=== PATIENT | male | born 1945 | race Caucasian/White ===

== ENCOUNTER 2017-06-03 10:27 | Day surgery (SDC) | payer MEDICARE ==
[~2017-06-03] VITALS: Ht 170.2 cm; Wt 95.3 kg
[~2017-06-03 10:27] MED LIST: AMLO10TA2 PO; ATOR10TA60 PO; CLON1TAB PO; FENO200C PO; HEPARIN SODIUM 5,000 UNIT in IV NORMAL SALINE 500ML BAG 500 ML IRR ONE; HYDROmorphone 2 MG/ML VIAL IV PRN; IV NORMAL SALINE 1000ML BAG 1,000 ML IV SCH; LIDOCAINE 1% 1 ML SYRINGE. ID PRN; LIDOCAINE 1% 20 ML VIAL. ONE; LISI1TAB5 PO; MORPHINE SULFATE 2 MG/ML DISP.SYRIN. IV PRN; ONDANSETRON PF 4 MG/2 ML VIAL. IV PRN; PAPAVERINE 60 MG/2 ML VIAL FOR OR ONLY. ONE; PROCHLORPERAZINE 10 MG/2 ML VIAL. IV PRN; SURGICEL FIBRILLAR 1X2 EACH. ONE; TAMS0.4C2 PO; [UNRECOGNIZED DRUG - CODE] PO; fentaNYL PF VIAL 100 MCG/2 ML VIAL IV PRN
[2017-06-03] MEDS ORDERED: IV NORMAL SALINE 1000ML BAG 1,000 ML IV ONE (11:15)
[2017-06-03] MEDS ORDERED: ONDANSETRON PF 4 MG/2 ML VIAL. ONE (11:31)
[2017-06-03] MEDS ORDERED: fentaNYL PF VIAL 100 MCG/2 ML VIAL ONE (11:31)
[2017-06-03] MEDS ORDERED: DESFLURANE 31 TO 60 MINUTES IH ONE (11:31)
[2017-06-03] MEDS ORDERED: LIDOCAINE 2% PF Vial for OR 5 ML VIAL. ONE (11:31)
[2017-06-03] MEDS ORDERED: PROPOFOL 20 ML IV ONE (11:31)
[2017-06-03] MEDS ORDERED: DEXAMETHASONE SOD PHOS 20 MG/5 ML VIAL. ONE (11:31)
[2017-06-03] MEDS ORDERED: NEOSTIGMINE METHYLSULFATE 5 MG/5 ML SYRINGE. ONE (11:50)
[2017-06-03] MEDS ORDERED: GLYCOPYRROLATE 1 MG/5 ML VIAL. ONE ×2 (11:50→11:59)
[2017-06-03] MEDS ORDERED: ePHEDrine PF IN SALINE 50 MG/5 ML DISP.SYRIN IV ONE (12:16)
--- NOTE | 2017-06-03 13:28 | PDOC4 ---
Operative Note Operative Note June 03, 2017 Attending surgeon: Sean Chin DO, ANEL, ADAMARIS Preoperative diagnosis: Chronic kidney disease stage V Postoperative diagnosis: Same Procedure: Creation of a right upper extremity brachial cephalic AV fistula Anesthesia: Local with Mac Specimens: None Complications: None Estimated blood loss: 10 mL next Preoperative indications: This is a very pleasant 71-year-old male who has the impending need for hemodialysis. The patient is currently not on hemodialysis but it was requested that we establish AV access for his impending need. Patient was consented for the procedure and he and his both understood all risks, benefits, and alternatives of the procedure prior to proceeding with surgery. Operative procedure: Patient was brought to the operative suite placed supine position. Patient was induced under anesthesia and then his right upper extremity was prepped and draped in sterile fashion. Following this a timeout procedure was performed. It was confirmed that the correct operative site was marked and draped in the patient had received appropriate perioperative antibiotics. This point in time a sterile ultrasound was used to albertina the location of the cephalic vein at the antecubital fossa. Following this a transverse incision above the antecubital fossa was made and carried through the skin and subcutaneous tissue after infiltrating 1% lidocaine. Next I carefully identified the cephalic vein and circumferentially dissected this proximally and distally. The vein was of a good size and healthy and suitable for fistula creation. Following this the brachial artery was dissected circumferentially and controlled with vessel loops. Next the patient was given weight-based heparin and this was let circulate for 3 minutes. Following this the brachial artery was controlled proximally and distally and then an 11 blade scalpel was used to create an arteriotomy. The arteriotomy was extended using Fermin scissors. Following this a 7-0 Prolene suture was used as a stay suture within the brachial artery. Next the distal portion of the cephalic vein was ligated using a 2-0 silk ligature and then divided sharply. The proximal end of the vein was controlled using a bulldog clamp. Following this the end of the vein was prepared and flushed using heparinized saline solution was confirmed excellent outflow through the cephalic vein. Next an end to side anastomosis was sewn in place using 7-0 Prolene suture in a running fashion. Prior to completing the anastomosis I did backbleed and flush the vessels appropriately, and then the anastomosis was completed and flow was restored. Patient had excellent thrill throughout the cephalic vein outflow tract and excellent hemostasis at the level of the anastomosis. I did free up a portion of the subcutaneous tissue and the outflow tract to accommodate expansion of the vein and ensure no kinking of the vein. After confirming adequate hemostasis, and correct needle and instrument count, the skin was closed using interrupted 3-0 Vicryl suture in a deep dermal fashion. Dermabond was next applied to the skin incision. The patient had an excellent palpable radial pulse at the conclusion of the procedure and the patient was taken to the postanesthesia care unit in stable condition. Sean Chin DO, FACS, RPVI [place] Room Operator of Vascular Surgery [facility] SEAN CHIN Jun 03, 2017 13:28
[2017-06-03 13:55] VITALS: BP 130/66
[2017-06-03] MEDS ORDERED: HYDROcodone/APAP 7.5/325MG 1 TAB TABLET PO ONE (14:00)
== END 2017-06-03 14:25 | disposition home or self-care (01) ==
LOC: SURG 10:27
PROVIDERS: ATTEND Surgery
DX: I12.0 Hypertensive chronic kidney disease with stage 5 chronic kidney disease or end stage renal disease (principal); N18.5 Chronic kidney disease, stage 5; Z99.2 Dependence on renal dialysis; E78.00 Pure hypercholesterolemia, unspecified; M19.90 Unspecified osteoarthritis, unspecified site; Z72.0 Tobacco use
CPT/HCPCS: 36821; J1100; J1644; J2405; J2440; J2704; J2710; J3010; J3490; J7040; J7120; J2001

== ENCOUNTER → 2017-08-28 | Outpatient (CLI) | payer MEDICARE ==
[~2017-08-28] MED LIST changes: -HEPARIN SODIUM 5,000 UNIT in IV NORMAL SALINE 500ML BAG 500 ML IRR ONE; -HYDROmorphone 2 MG/ML VIAL IV PRN; -IV NORMAL SALINE 1000ML BAG 1,000 ML IV SCH; -LIDOCAINE 1% 1 ML SYRINGE. ID PRN; -LIDOCAINE 1% 20 ML VIAL. ONE; -MORPHINE SULFATE 2 MG/ML DISP.SYRIN. IV PRN; -ONDANSETRON PF 4 MG/2 ML VIAL. IV PRN; -PAPAVERINE 60 MG/2 ML VIAL FOR OR ONLY. ONE; -PROCHLORPERAZINE 10 MG/2 ML VIAL. IV PRN; -SURGICEL FIBRILLAR 1X2 EACH. ONE; -fentaNYL PF VIAL 100 MCG/2 ML VIAL IV PRN
--- NOTE | 2017-08-28 13:16 | KCIC ---
CHEST PA LATERAL History: Chronic kidney disease, evaluation for TB prior to dialysis, smoker Comparison: None. Findings: Pericardial cardiac silhouette is somewhat enlarged. There are very small dependent pleural effusions bilaterally as seen on the lateral view. There is likely emphysema. Central pulmonary vasculature is prominent. There is a mass is chronic calcification near aortic arch. There is no lobar consolidation. There is deformity of left third, fifth, sixth, seventh, eighth ribs compatible with old trauma. Impression: 1. There are very small dependent pleural effusions. Heart is enlarged. Constellation of findings could be due to component of left ventricular failure. There is emphysema. 2. There are multiple left rib fractures. 3. There are no radiographic findings suggestive of active tuberculosis Electronically signed by: Jd Burgess MD (08/28/2017 1:13 PM) [id number]
== END | disposition home or self-care (01) ==
LOC: KCIC 11:05
PROVIDERS: ATTEND Family Medicine
DX: S22.42XA Multiple fractures of ribs, left side, initial encounter for closed fracture (principal); N18.6 End stage renal disease; J43.9 Emphysema, unspecified; J90 Pleural effusion, not elsewhere classified; Z99.2 Dependence on renal dialysis; X58.XXXA Exposure to other specified factors, initial encounter; Y93.89 Activity, other specified; Y92.89 Other specified places as the place of occurrence of the external cause; Y99.8 Other external cause status
CPT/HCPCS: 71020

== ENCOUNTER 2017-09-03 17:35 | Inpatient (IN) | payer MEDICARE ==
[~2017-09-03] VITALS: Ht 172.7 cm; Wt 96.7 kg
--- NOTE | 2017-09-03 17:38 | PHYS DOC ---
Adult General Chief Complaint Chief Complaint: SHORTNESS OF BREATH HPI HPI Patient is a 71 year old male presenting to the emergency department for evaluation of shortness of breath and lower extremity swelling. Patient says that the shortness of breath has been going on for the last several days but has become significantly worse to the point that he cannot lay flat and he is sleeping sitting up and he can barely walk any distance with becoming short of breath. Patient says his lower extremities are getting quite edematous as well. Patient has underlying kidney disease that his marine biologist presumes is from hypertension and he has a right arm fistula and was to begin dialysis yesterday but did not start as he had not had a chest x-ray to rule out tuberculosis. His marine biologist is Dr. Turner. His room air auction saturation ranges from 89-93%. Review of Systems Review of Systems Constitutional: Denies fever or chills [] Eyes: Denies change in visual acuity, redness, or eye pain [] HENT: Denies nasal congestion or sore throat [] Respiratory: + cough, shortness of breath [] Cardiovascular: No additional information not addressed in HPI [] GI: Denies abdominal pain, nausea, vomiting, bloody stools or diarrhea [] : Denies dysuria or hematuria [] Musculoskeletal: Denies back pain or joint pain [] Integument: Denies rash or skin lesions [] Neurologic: Denies headache, focal weakness or sensory changes [] Current Medications Current Medications Current Medications Medications (Trade) Dose Ordered Sig/Georges Start Time Stop Time Status Last Admin Dose Admin Albuterol/ Ipratropium (Duoneb) 3 ml 1X ONCE 09/03/17 18:00 09/03/17 18:01 DC 09/03/17 18:12 3 ML Ondansetron HCl (Zofran) 4 mg PRN Q8HRS PRN 09/03/17 19:00 09/04/17 18:59 Allergies Allergies Allergies Coded Allergies Type Severity Reaction Last Updated Verified No Known Drug Allergies 06/03/17 No Physical Exam Physical Exam Constitutional: Well developed, well nourished, no acute distress, non-toxic appearance. [] HENT: Normocephalic, atraumatic, bilateral external ears normal, oropharynx moist, no oral exudates, nose normal. [] Eyes: PERRLA, EOMI, conjunctiva normal, no discharge. [] Neck: Normal range of motion, no tenderness, supple, no stridor. [] Cardiovascular:Heart rate regular rhythm, no murmur [] Lungs & Thorax: Bilateral breath sounds with crackles at bases and expiratory wheezing noted as well. Abdomen: Bowel sounds normal, soft, no tenderness, no masses, no pulsatile masses. [] Skin: Warm, dry, no erythema, no rash. [] Back: No tenderness, no CVA tenderness. [] Extremities: No tenderness, no cyanosis, no clubbing, ROM intact, 3-4+ edema BL. [] Neurologic: Alert and oriented X 3, normal motor function, normal sensory function, no focal deficits noted. [] Current Patient Data Vital Signs Vital Signs Date Time Temp Pulse Resp B/P (MAP) Pulse Ox O2 Delivery O2 Flow Rate FiO2 09/03/17 18:14 92 Room Air 09/03/17 17:37 97.7 73 22 154/70 (98) 97.7 Lab Values Laboratory Tests Test 09/03/17 17:55 White Blood Count 9.9 x10^3/uL (4.0-11.0) Red Blood Count 3.15 x10^6/uL (4.30-5.70) L Hemoglobin 9.9 g/dL (13.0-17.5) L Hematocrit 30.1 % (39.0-53.0) L Mean Corpuscular Volume 96 fL (79-100) Mean Corpuscular Hemoglobin 32 pg (25-35) Mean Corpuscular Hemoglobin Concent 33 g/dL (31-37) Red Cell Distribution Width 15.8 % (11.5-14.5) H Platelet Count 270 x10^3/uL (140-400) Neutrophils (%) (Auto) 72 % (31-73) Lymphocytes (%) (Auto) 13 % (24-48) L Monocytes (%) (Auto) 12 % (0-9) H Eosinophils (%) (Auto) 3 % (0-3) Basophils (%) (Auto) 1 % (0-3) Neutrophils # (Auto) 7.1 x10^3uL (1.8-7.7) Lymphocytes # (Auto) 1.3 x10^3/uL (1.0-4.8) Monocytes # (Auto) 1.2 x10^3/uL (0.0-1.1) H Eosinophils # (Auto) 0.3 x10^3/uL (0.0-0.7) Basophils # (Auto) 0.1 x10^3/uL (0.0-0.2) Sodium Level 143 mmol/L (136-145) Potassium Level 3.8 mmol/L (3.5-5.1) Chloride Level 107 mmol/L (98-107) Carbon Dioxide Level 25 mmol/L (21-32) Anion Gap 11 (6-14) Blood Urea Nitrogen 39 mg/dL (8-26) H Creatinine 3.9 mg/dL (0.7-1.3) H Estimated GFR (Cockcroft-Gault) 15.4 BUN/Creatinine Ratio 10 (6-20) Glucose Level 105 mg/dL (70-99) H Calcium Level 9.1 mg/dL (8.5-10.1) Magnesium Level 2.1 mg/dL (1.8-2.4) Total Bilirubin 1.3 mg/dL (0.2-1.0) H Aspartate Amino Transferase (AST) 16 U/L (15-37) Alanine Aminotransferase (ALT) 16 U/L (16-63) Alkaline Phosphatase 42 U/L (46-116) L AV-Jeu-M-Type Natriuretic Peptide 83079 pg/mL (0-124) H Total Protein 7.2 g/dL (6.4-8.2) Albumin 3.0 g/dL (3.4-5.0) L Albumin/Globulin Ratio 0.7 (1.0-1.7) L Thyroid Stimulating Hormone (TSH) 0.946 uIU/mL (0.358-3.74) Laboratory Tests 09/03/17 17:55 Laboratory Tests 09/03/17 17:55 EKG EKG Sinus rhythm at 72 beats per minutes with normal axis no obvious ST elevation or depression and normal T waves. Radiology/Procedures Radiology/Procedures Chest x-ray shows rotation with normal mediastinum with cardiomegaly noted and interstitial edema but no obvious infiltrate. Course & Med Decision Making Course & Med Decision Making Patient with renal failure and is now quite swollen with fluid overloaded now affecting his breathing ability so he will need to be admitted to get dialysis. I spoke to Dr. Galloway of nephrology and he said that he would try dialyze patient tonight so that the nephrology team would not have to dialyze him on Thanksgiving that he was not definitive on that. Patient does not need emergent dialysis in my opinion. Patient will be admitted in stable condition to [facility] for further evaluation and treatment. Dragon Disclaimer Dragon Disclaimer This electronic medical record was generated, in whole or in part, using a voice recognition dictation system. Departure Departure Impression: Primary Impression: Pulmonary edema Additional Impressions: Renal failure Lower extremity edema Elevated brain natriuretic peptide (BNP) level Disposition: ADMITTED INPATIENT Admitting Physician: Other ([facility]) Condition: IMPROVED Referrals: ADARSH MELARA (PCP) Problem Qualifiers Primary Impression: Pulmonary edema Chronicity: acute Qualified Codes: J81.0 - Acute pulmonary edema ADARSH ESCOBEDO DO Sep 03, 2017 17:38
[2017-09-03] MEDS ORDERED: IPRATRPIUM/ALBUTEROL 0.5/2.5MG 3 ML NEBU. NEB ONE (18:00)
[2017-09-03 18:07] LABS: BASO # 0.1 x10^3/uL (0.0-0.2); BASO % 1 % (0-3); EOS % 3 % (0-3); HEMATOCRIT 30.1 % (39.0-53.0); HEMOGLOBIN 9.9 g/dL (13.0-17.5); LYMPH # 1.3 x10^3/uL (1.0-4.8); LYMPH % 13 % (24-48); MEAN CORPUSCULAR HEMOGLOBIN 32 pg (25-35); MEAN CORPUSCULAR HGB CONC 33 g/dL (31-37); MEAN CORPUSCULAR VOLUME 96 fL (79-100); MONO % 12 % (0-9); NEUT % 72 % (31-73); PLATELET COUNT 270 x10^3/uL (140-400); RED BLOOD COUNT 3.15 x10^6/uL (4.30-5.70); RED CELL DISTRIBUTION WIDTH 15.8 % (11.5-14.5); WHITE BLOOD COUNT 9.9 x10^3/uL (4.0-11.0)
--- NOTE | 2017-09-03 18:14 | EKG ---
[facility] [address] [place] [address] Test Date: 2017-09-03 Test Time: 17:43:22 Pat Name: CARMINA LEMA Department: Room: Gender: M Parcel Carrier: : 1945 Requested By: ADARSH ESCOBEDO Order Number: [id number] Reading MD: Idris Freedman Measurements Intervals [place] Rate: 72 P: 51 TX: 124 QRS: 22 QRSD: 96 T: 35 QT: 408 QTc: 448 Interpretive Statements SINUS RHYTHM LEFT ATRIAL ABNORMALITY Electronically Signed On 09-15-2017 14:04:10 GREEN LUMBER GRADER by Idris Freedman
[2017-09-03 18:19] LABS: CALCIUM 9.1 mg/dL (8.5-10.1); CREATININE 3.9 mg/dL (0.7-1.3); GFR 15.4; POTASSIUM 3.8 mmol/L (3.5-5.1)
[2017-09-03 18:25] LABS: ALBUMIN/GLOBULIN RATIO 0.7 (1.0-1.7); MAGNESIUM 2.1 mg/dL (1.8-2.4); TOTAL BILIRUBIN 1.3 mg/dL (0.2-1.0); TOTAL PROTEIN 7.2 g/dL (6.4-8.2)
[2017-09-03] MEDS ORDERED: ONDANSETRON PF 4 MG/2 ML VIAL. IV PRN (19:00)
[2017-09-03] MEDS ORDERED: DIALYSIS PATIENT. MC PRN ×2 (21:45)
[2017-09-03 22:24] VITALS: BP 165/68
[2017-09-03 23:00] VITALS: BP 141/61
[2017-09-04 03:00] VITALS: BP 157/57
[2017-09-04 03:55] LABS: BASO % 1 % (0-3); EOS % 3 % (0-3); HEMATOCRIT 27.5 % (39.0-53.0); HEMOGLOBIN 8.9 g/dL (13.0-17.5); LYMPH # 1.2 x10^3/uL (1.0-4.8); LYMPH % 14 % (24-48); MEAN CORPUSCULAR HEMOGLOBIN 31 pg (25-35); MEAN CORPUSCULAR HGB CONC 33 g/dL (31-37); MEAN CORPUSCULAR VOLUME 95 fL (79-100); MONO % 14 % (0-9); NEUT % 69 % (31-73); PLATELET COUNT 228 x10^3/uL (140-400); RED BLOOD COUNT 2.91 x10^6/uL (4.30-5.70); RED CELL DISTRIBUTION WIDTH 15.7 % (11.5-14.5); WHITE BLOOD COUNT 8.3 x10^3/uL (4.0-11.0)
[2017-09-04 05:00] LABS: CALCIUM 8.4 mg/dL (8.5-10.1); GFR 20.8; POTASSIUM 3.5 mmol/L (3.5-5.1)
[2017-09-04 07:00] VITALS: BP 121/64
--- NOTE | 2017-09-04 08:13 | RAD ---
Single view chest History:Shortness of air An AP view of the chest is submitted. Comparison: 08/28/2017. Findings: There is no pneumothorax. Somewhat enlarged pericardial cardiac silhouette is stable. There is again mild blunting of the costophrenic sulci greater on the right as seen previously. There is some mild interstitial opacity, questionably somewhat increased at the lung bases. There are again multiple old left rib fractures. Impression: 1. There are very small pleural effusions as seen on recent exam and some questionable mild increased interstitial opacity could be due to interstitial edema, constellation of of findings which could be due to sequela of left ventricular failure.
[2017-09-04] MEDS ORDERED: cloNIDine HCL 0.1 MG TABLET PO PRN (09:30)
[2017-09-04] MEDS ORDERED: ACETAMINOPHEN 500 MG TABLET PO PRN (09:30)
[2017-09-04] MEDS ORDERED: ONDANSETRON PF 4 MG/2 ML VIAL. IV PRN (09:30)
--- NOTE | 2017-09-04 10:03 | PDOC1 ---
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 Underwent stat HD last night, feels better now this AM as I see him, fells like he is slowly getting fluid overloaded again, Watching tv, no CP, K ok this AM, bicarb ok. Still makes urine, HOme meds resumed, HTN etc, On HD bec of HTN Past Medical History Cardiovascular: HTN Renal/: Chronic renal insuff Past Surgical History Past Surgical History: Other (AV fistula), No pertinent history Family History Family History: No Significant Social History Smoke: No ALCOHOL: none Drugs: None Current Problem List Problem List Problems Medical Problems: (1) Elevated brain natriuretic peptide (BNP) level Status: Acute (2) Lower extremity edema Status: Acute (3) Pulmonary edema Status: Acute (4) Renal failure Status: Acute Problems: Current Medications Current Medications Current Medications Albuterol/ Ipratropium (Duoneb) 3 ml 1X ONCE NEB Last administered on t 18:12; Start 09/03/17 at 18:00; Stop 09/03/17 at 18:01; Status DC Ondansetron HCl (Zofran) 4 mg PRN Q8HRS PRN IV NAUSEA/VOMITING; Start at 19:00; Stop 09/04/17 at 09:26; Status DC Info (PHARMACY MONITORING -- do not chart) 1 each PRN DAILY PRN MC SEE COMMENTS ; Start 09/03/17 at 21:45 Info (PHARMACY MONITORING -- do not chart) 1 each PRN DAILY PRN MC SEE COMMENTS ; Start 09/03/17 at 21:45; Status UNV Ondansetron HCl (Zofran) 4 mg PRN Q6HRS PRN IV NAUSEA/VOMITING; Start at 09:30 Acetaminophen (Tylenol) 500 mg PRN Q6HRS PRN PO MILD PAIN / TEMP; Start at 09:30 Amlodipine Besylate (Norvasc) 10 mg DAILY PO ; Start 09/04/17 at 10:00 Atorvastatin Calcium (Lipitor) 10 mg QHS PO ; Start 09/04/17 at 21:00 Clonazepam (KlonoPIN) 1 mg BID PO ; Start 09/04/17 at 10:00 Tamsulosin HCl (Flomax) 0.4 mg DAILY PO ; Start 09/04/17 at 10:00 Atenolol (Tenormin) 50 mg DAILY PO ; Start 09/04/17 at 10:00 Fenofibrate (Lofibra) 134 mg DAILY PO ; Start 09/04/17 at 10:00 Non-Formulary Medication 1 tab DAILY PO ; Start 09/05/17 at 09:00; Status UNV Clonidine HCl (Catapres) 0.1 mg PRN Q1HR PRN PO HYPERTENSION, SEE COMMENTS; Start 09/04/17 at 09:30 Lisinopril (Prinivil) 20 mg DAILY PO ; Start 09/04/17 at 10:00 Hydrochlorothiazide (Microzide) 12.5 mg DAILY PO ; Start 09/04/17 at 10:00 Active Scripts Active Reported Klonopin (Clonazepam) 1 Mg Tablet 1 Tab PO BID Lisinopril-Hctz 20-12.5 Mg Tab (Lisinopril/Hydrochlorothiazide) 1 Each Tablet 1 Tab PO DAILY Fenofibrate (Fenofibrate,Micronized) 200 Mg Capsule 1 Cap PO DAILY Tamsulosin Hcl 0.4 Mg Cap.er.24h 1 Cap PO DAILY Betaxolol Hcl 20 Mg Tablet 20 Mg PO DAILY Amlodipine Besylate 10 Mg Tablet 10 Mg PO DAILY Atorvastatin Calcium 10 Mg Tablet 1 Tab PO DAILY Allergies Allergies: Coded Allergies: No Known Drug Allergies (Unverified , 06/03/17) ROS General: No: Chills, Night Sweats, Fatigue, Malaise, Appetite, Other PSYCHOLOGICAL ROS: No: Anxiety, Behavioral Disorder, Concentration difficultie , Decreased libido, Depression, Disorientation, Hallucinations, Hostility, Irritablity, Memory difficulties, Mood Swings, Obsessive thoughts, Physical abuse, Sexual abuse, Sleep disturbances, Suicidal ideation, Other Eyes: No Blurry vision, No Decreased vision, No Double vision, No Dry eyes, No Excessive tearing, No Eye Pain, No Itchy Eyes, No Loss of vision, No Photophobia , No Scotomata, No Uses contacts, No Uses glasses, No Other HEENT: No: Heacaches, Visual Changes, Hearing change, Nasal congestion, Nasal discharge, Oral lesions, Sinus pain, Sore Throat, Epistaxis, Sneezing, Snoring, Tinnitus, Vertigo, Vocal changes, Other ALLERGY AND IMMUNOLOGY: No: Hives, Insect Bite Sensitivity, Itchy/Watery Eyes, Nasal Congestion, Post Nasal Drip, Seasonal Allergies, Other Hematological and Lymphatic: No: Bleeding Problems, Blood Clots, Blood Transfusions, Brusing, Night Sweats, Pallor, Swollen Lymph Nodes, Other Respiratory: YES: Shortness of breath, SOB with excertion Cardiovascular: yes Orthopnea, yes Paroxysmal Noc. Dyspnea, yes Edema Gastrointestinal: No Nausea, No Vomiting, No Abdominal Pain, No Diarrhea, No Constipation, No Melena, No Hematochezia, No Other Genitourinary: No Dysuria, No Frequency, No Incontinence, No Hematuria, No Retention, No Discharge, No Urgency, No Pain, No Flank Pain, No Other, No , No , No , No , No , No , No Musculoskeletal: No Gait Disturbance, No Joint Pain, No Joint Stiffness, No Joint Swelling, No Muscle Pain, No Muscular Weakness, No Pain In:, No Swelling In:, No Other Neurological: No Behavorial Changes, No Bowel/Bladder ControlChng, No Confusion , No Dizziness, No Gait Disturbance, No Headaches, No Impaired Coord/balance, No Memory Loss, No Numbness/Tingling, No Seizures, No Speech Problems, No Tremors, No Visual Changes, No Weakness, No Other Skin: No Dry Skin, No Eczema, No Hair Changes, No Lumps, No Mole Changes, No Mottling, No Nail Changes, No Pruritus, No Rash, No Skin Lesion Changes, No Other, No Acne Physical Exam General: Alert, Oriented X3, Cooperative, No acute distress HEENT: Atraumatic, PERRLA Lungs: Normal air movement, Other (dec BS, crackles, bases, no wheezes) Abdomen: Normal bowel sounds, Soft, No tenderness, No hepatosplenomegaly, No masses Male Genitals Exam: normal genitalia, normal prostate Rectal Exam: not examined PELVIC: Nml ext genitalia Extremities: Other (plus 2 -3 pitting edema) Skin: No rashes, No breakdown, No significant lesion Neuro: Normal gait, Normal speech, Strength at 5/5 X4 ext, Normal tone, Sensation intact, Cranial nerves 3-12 NL, Reflexes 2+ Psych/Mental Status: Mental status NL, Mood NL Vitals Vitals Vital Signs Date Time Temp Pulse Resp B/P (MAP) Pulse Ox O2 Delivery O2 Flow Rate FiO2 09/04/17 07:00 98.1 67 19 121/64 (83) 94 Nasal Cannula 98.1 09/04/17 03:00 2.0 Labs Labs Laboratory Tests Test 09/03/17 17:50 09/03/17 17:55 09/04/17 03:33 25-Hydroxy Vitamin D Total 17.4 ng/mL (30-100) White Blood Count 9.9 x10^3/uL (4.0-11.0) 8.3 x10^3/uL (4.0-11.0) Red Blood Count 3.15 x10^6/uL (4.30-5.70) 2.91 x10^6/uL (4.30-5.70) Hemoglobin 9.9 g/dL (13.0-17.5) 8.9 g/dL (13.0-17.5) Hematocrit 30.1 % (39.0-53.0) 27.5 % (39.0-53.0) Mean Corpuscular Volume 96 fL (79-100) 95 fL (79-100) Mean Corpuscular Hemoglobin 32 pg (25-35) 31 pg (25-35) Mean Corpuscular Hemoglobin Concent 33 g/dL (31-37) 33 g/dL (31-37) Red Cell Distribution Width 15.8 % (11.5-14.5) 15.7 % (11.5-14.5) Platelet Count 270 x10^3/uL (140-400) 228 x10^3/uL (140-400) Neutrophils (%) (Auto) 72 % (31-73) 69 % (31-73) Lymphocytes (%) (Auto) 13 % (24-48) 14 % (24-48) Monocytes (%) (Auto) 12 % (0-9) 14 % (0-9) Eosinophils (%) (Auto) 3 % (0-3) 3 % (0-3) Basophils (%) (Auto) 1 % (0-3) 1 % (0-3) Neutrophils # (Auto) 7.1 x10^3uL (1.8-7.7) 5.7 x10^3uL (1.8-7.7) Lymphocytes # (Auto) 1.3 x10^3/uL (1.0-4.8) 1.2 x10^3/uL (1.0-4.8) Monocytes # (Auto) 1.2 x10^3/uL (0.0-1.1) 1.1 x10^3/uL (0.0-1.1) Eosinophils # (Auto) 0.3 x10^3/uL (0.0-0.7) 0.2 x10^3/uL (0.0-0.7) Basophils # (Auto) 0.1 x10^3/uL (0.0-0.2) 0.0 x10^3/uL (0.0-0.2) Sodium Level 143 mmol/L (136-145) 145 mmol/L (136-145) Potassium Level 3.8 mmol/L (3.5-5.1) 3.5 mmol/L (3.5-5.1) Chloride Level 107 mmol/L (98-107) 107 mmol/L (98-107) Carbon Dioxide Level 25 mmol/L (21-32) 29 mmol/L (21-32) Anion Gap 11 (6-14) 9 (6-14) Blood Urea Nitrogen 39 mg/dL (8-26) 25 mg/dL (8-26) Creatinine 3.9 mg/dL (0.7-1.3) 3.0 mg/dL (0.7-1.3) Estimated GFR (Cockcroft-Gault) 15.4 20.8 BUN/Creatinine Ratio 10 (6-20) Glucose Level 105 mg/dL (70-99) 88 mg/dL (70-99) Calcium Level 9.1 mg/dL (8.5-10.1) 8.4 mg/dL (8.5-10.1) Magnesium Level 2.1 mg/dL (1.8-2.4) Total Bilirubin 1.3 mg/dL (0.2-1.0) Aspartate Amino Transf (AST/SGOT) 16 U/L (15-37) Alanine Aminotransferase (ALT/SGPT) 16 U/L (16-63) Alkaline Phosphatase 42 U/L (46-116) ZI-Rip-B-Type Natriuretic Peptide 61197 pg/mL (0-124) Total Protein 7.2 g/dL (6.4-8.2) Albumin 3.0 g/dL (3.4-5.0) Albumin/Globulin Ratio 0.7 (1.0-1.7) Thyroid Stimulating Hormone (TSH) 0.946 uIU/mL (0.358-3.74) Laboratory Tests Test 09/03/17 17:50 09/03/17 17:55 09/04/17 03:33 25-Hydroxy Vitamin D Total 17.4 ng/mL (30-100) White Blood Count 9.9 x10^3/uL (4.0-11.0) 8.3 x10^3/uL (4.0-11.0) Red Blood Count 3.15 x10^6/uL (4.30-5.70) 2.91 x10^6/uL (4.30-5.70) Hemoglobin 9.9 g/dL (13.0-17.5) 8.9 g/dL (13.0-17.5) Hematocrit 30.1 % (39.0-53.0) 27.5 % (39.0-53.0) Mean Corpuscular Volume 96 fL (79-100) 95 fL (79-100) Mean Corpuscular Hemoglobin 32 pg (25-35) 31 pg (25-35) Mean Corpuscular Hemoglobin Concent 33 g/dL (31-37) 33 g/dL (31-37) Red Cell Distribution Width 15.8 % (11.5-14.5) 15.7 % (11.5-14.5) Platelet Count 270 x10^3/uL (140-400) 228 x10^3/uL (140-400) Neutrophils (%) (Auto) 72 % (31-73) 69 % (31-73) Lymphocytes (%) (Auto) 13 % (24-48) 14 % (24-48) Monocytes (%) (Auto) 12 % (0-9) 14 % (0-9) Eosinophils (%) (Auto) 3 % (0-3) 3 % (0-3) Basophils (%) (Auto) 1 % (0-3) 1 % (0-3) Neutrophils # (Auto) 7.1 x10^3uL (1.8-7.7) 5.7 x10^3uL (1.8-7.7) Lymphocytes # (Auto) 1.3 x10^3/uL (1.0-4.8) 1.2 x10^3/uL (1.0-4.8) Monocytes # (Auto) 1.2 x10^3/uL (0.0-1.1) 1.1 x10^3/uL (0.0-1.1) Eosinophils # (Auto) 0.3 x10^3/uL (0.0-0.7) 0.2 x10^3/uL (0.0-0.7) Basophils # (Auto) 0.1 x10^3/uL (0.0-0.2) 0.0 x10^3/uL (0.0-0.2) Sodium Level 143 mmol/L (136-145) 145 mmol/L (136-145) Potassium Level 3.8 mmol/L (3.5-5.1) 3.5 mmol/L (3.5-5.1) Chloride Level 107 mmol/L (98-107) 107 mmol/L (98-107) Carbon Dioxide Level 25 mmol/L (21-32) 29 mmol/L (21-32) Anion Gap 11 (6-14) 9 (6-14) Blood Urea Nitrogen 39 mg/dL (8-26) 25 mg/dL (8-26) Creatinine 3.9 mg/dL (0.7-1.3) 3.0 mg/dL (0.7-1.3) Estimated GFR (Cockcroft-Gault) 15.4 20.8 BUN/Creatinine Ratio 10 (6-20) Glucose Level 105 mg/dL (70-99) 88 mg/dL (70-99) Calcium Level 9.1 mg/dL (8.5-10.1) 8.4 mg/dL (8.5-10.1) Magnesium Level 2.1 mg/dL (1.8-2.4) Total Bilirubin 1.3 mg/dL (0.2-1.0) Aspartate Amino Transf (AST/SGOT) 16 U/L (15-37) Alanine Aminotransferase (ALT/SGPT) 16 U/L (16-63) Alkaline Phosphatase 42 U/L (46-116) XY-Bkn-B-Type Natriuretic Peptide 87646 pg/mL (0-124) Total Protein 7.2 g/dL (6.4-8.2) Albumin 3.0 g/dL (3.4-5.0) Albumin/Globulin Ratio 0.7 (1.0-1.7) Thyroid Stimulating Hormone (TSH) 0.946 uIU/mL (0.358-3.74) VTE Prophylaxis Ordered VTE Prophylaxis Devices: Yes VTE Pharmacological Prophylaxi: Yes Assessment/Plan Assessment/Plan 1. FLuid overload bec of missed HD - was not set up properly 2. HTN - compliant 3. Anemia of CKD 4. ESRD on HD - new HD 5. s/p stat HD (09/03/17) PLAN: Admit HD per renal COnt home meds Renal panel tmr PT.oT HOme when we are sure HD has been set up CARMEN WELCH MD Sep 04, 2017 10:03
[2017-09-04] MEDS: hydroCHLOROthiazide 12.5 MG CAPSULE PO SCH (10:13)
[2017-09-04] MEDS: clonazePAM 1 MG TABLET PO SCH ×2 (10:13→21:48)
[2017-09-04] MEDS: FENOFIBRATE,MICRONIZED 134 MG CAPSULE PO SCH (10:15)
[2017-09-04] MEDS: TAMSULOSIN 0.4 MG CAP.ER.24H. PO SCH (10:17)
[2017-09-04] MEDS: ATENOLOL 50 MG TABLET. PO SCH (10:18)
[2017-09-04] MEDS: amLODIPine BESYLATE 10 MG TABLET PO SCH (10:18)
[2017-09-04] MEDS: LISINOPRIL 20 MG TABLET PO SCH (10:19)
[2017-09-04 11:00] VITALS: BP 146/56
--- NOTE | 2017-09-04 13:27 | CONS ---
DATE OF CONSULTATION: 09/04/2017 REASON FOR CONSULTATION: Renal failure. HISTORY OF PRESENT ILLNESS: The patient is a 71-year-old gentleman with history of hypertension and chronic kidney disease. He has had progressive renal failure. Previously followed by Dr. Garcia of our group. He was in anticipation of initiating outpatient dialysis, but due to issues with placement and hemodialysis, he presents to the hospital with increasing shortness of breath. Due to acute pulmonary edema, he has undergone acute dialysis with improvement in the same. PAST MEDICAL HISTORY: 1. Hypertension, chronic kidney disease, now end-stage renal disease status. 2. Anemia of chronic kidney disease. 3. Secondary hyperparathyroidism with renal disease. 4. Hyperlipidemia. ALLERGIES: None were noted. MEDICATIONS: Per medication list. FAMILY HISTORY: Noncontributory for renal disease. SOCIAL HISTORY: The patient resides with assistance from family. REVIEW OF SYSTEMS: No headaches, sinus problem, nasal drainage, epistaxis, change in vision or hearing. No difficulty swallowing. No fever, chills, cough, sputum production, or hemoptysis. No chest pain. He has had shortness of breath, which is markedly improved. He has had dyspnea on exertion, again improved. He has had lower extremity edema, improving. PHYSICAL EXAMINATION: GENERAL APPEARANCE: The patient awake, conversant. HEENT: Clear. NECK: No increased JVD. No thyromegaly, mass, or adenopathy. LUNGS: Clear. CARDIAC: Without S3 or rub. ABDOMEN: Soft, nontender, no bruits. EXTREMITIES: Bilateral lower extremity edema, 3+ pitting with erythema. He has an AV fistula. NEUROLOGIC: Nonfocal localizing. PSYCHIATRIC: Very good attention to detail, appropriate affect. LABORATORY DATA: Hemoglobin 8.9, hematocrit 27.5, white cell count 8.3. Potassium 3.8, CO2 25, creatinine 3.9, GFR 15. IMPRESSION: 1. 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 2. Pulmonary edema due to the above -- improved. 3. Anemia of chronic kidney disease. RECOMMENDATIONS: 1. Ongoing dialysis. We will plan for dialysis again tomorrow. 2. We will have child welfare social worker assist in assuring the patient has dialysis time for outpatient dialysis. 3. Ongoing Epogen for anemia of chronic kidney disease. 4. Hopefully anticipate discharge for tomorrow. CHRIS BRUNO MD DR: Mariella JOB#: [id number] / [id number]
[2017-09-04 15:00] VITALS: BP 113/44
[2017-09-04 15:12] LABS: HEP B SURFACE ABDY Non Reactive (.)
[2017-09-04 19:26] VITALS: BP 135/62
[2017-09-04] MEDS ORDERED: ATORVASTATIN CALCIUM 10 MG TABLET. PO SCH (21:00)
[2017-09-04 23:14] VITALS: BP 133/59
[2017-09-05 03:09] VITALS: BP 136/63
[2017-09-05 06:17] LABS: BASO # 0.1 x10^3/uL (0.0-0.2); BASO % 1 % (0-3); EOS % 3 % (0-3); HEMATOCRIT 26.8 % (39.0-53.0); HEMOGLOBIN 8.7 g/dL (13.0-17.5); LYMPH # 1.4 x10^3/uL (1.0-4.8); LYMPH % 16 % (24-48); MEAN CORPUSCULAR HEMOGLOBIN 31 pg (25-35); MEAN CORPUSCULAR HGB CONC 33 g/dL (31-37); MEAN CORPUSCULAR VOLUME 95 fL (79-100); MONO % 15 % (0-9); NEUT % 66 % (31-73); PLATELET COUNT 227 x10^3/uL (140-400); RED BLOOD COUNT 2.81 x10^6/uL (4.30-5.70); RED CELL DISTRIBUTION WIDTH 15.3 % (11.5-14.5); WHITE BLOOD COUNT 8.9 x10^3/uL (4.0-11.0)
[2017-09-05 06:42] LABS: CALCIUM 8.4 mg/dL (8.5-10.1); CREATININE 3.4 mg/dL (0.7-1.3); POTASSIUM 3.8 mmol/L (3.5-5.1)
[2017-09-05 07:00] VITALS: BP 152/70
[2017-09-05] MEDS: FENOFIBRATE,MICRONIZED 134 MG CAPSULE PO SCH (08:29)
[2017-09-05] MEDS: clonazePAM 1 MG TABLET PO SCH (08:29)
[2017-09-05] MEDS: TAMSULOSIN 0.4 MG CAP.ER.24H. PO SCH (08:29)
[2017-09-05] MEDS ORDERED: DIALYSIS PATIENT. MC PRN ×2 (08:30)
[2017-09-05] MEDS: ATENOLOL 50 MG TABLET. PO SCH (09:00)
[2017-09-05] MEDS: LISINOPRIL 20 MG TABLET PO SCH (09:00)
[2017-09-05] MEDS: amLODIPine BESYLATE 10 MG TABLET PO SCH (09:00)
[2017-09-05] MEDS: hydroCHLOROthiazide 12.5 MG CAPSULE PO SCH (09:00)
[2017-09-05] MEDS ORDERED: NON FORMULARY ITEM (Lisinopril/Hydrochlorothiazide (Lisinopril-Hctz 20-12.5 Mg Tab) 1 TAB) PO SCH (09:00)
[2017-09-05] MEDS ORDERED: LIDOCAINE 1% PF 2 ML VIAL. ONE (09:31)
--- NOTE | 2017-09-05 09:59 | PDOC3 ---
Discharge Summary Visit Information Date of Admission: Sep 03, 2017 Date of Discharge: Sep 05, 2017 Admitting Diagnosis Comment: 1. FLuid overload bec of missed HD - was not set up properly 2. HTN - compliant 3. Anemia of CKD 4. ESRD on HD - new HD 5. s/p stat HD (09/03/17) Final Diagnosis Problems Medical Problems: (1) Elevated brain natriuretic peptide (BNP) level Status: Acute (2) Lower extremity edema Status: Acute (3) Pulmonary edema Status: Acute (4) Renal failure Status: Acute Brief Hospital Course Allergies Allergies Coded Allergies Type Severity Reaction Last Updated Verified No Known Drug Allergies 06/03/17 No Vital Signs Vital Signs Date Time Temp Pulse Resp B/P (MAP) Pulse Ox O2 Delivery O2 Flow Rate FiO2 09/05/17 07:00 97.6 67 18 152/70 (97) 93 Nasal Cannula 2.0 97.6 Lab Results Laboratory Tests Test 09/03/17 17:50 09/03/17 17:55 09/03/17 21:50 09/04/17 03:33 25-Hydroxy Vitamin D Total 17.4 ng/mL (30-100) White Blood Count 9.9 x10^3/uL (4.0-11.0) 8.3 x10^3/uL (4.0-11.0) Red Blood Count 3.15 x10^6/uL (4.30-5.70) 2.91 x10^6/uL (4.30-5.70) Hemoglobin 9.9 g/dL (13.0-17.5) 8.9 g/dL (13.0-17.5) Hematocrit 30.1 % (39.0-53.0) 27.5 % (39.0-53.0) Mean Corpuscular Volume 96 fL (79-100) 95 fL (79-100) Mean Corpuscular Hemoglobin 32 pg (25-35) 31 pg (25-35) Mean Corpuscular Hemoglobin Concent 33 g/dL (31-37) 33 g/dL (31-37) Red Cell Distribution Width 15.8 % (11.5-14.5) 15.7 % (11.5-14.5) Platelet Count 270 x10^3/uL (140-400) 228 x10^3/uL (140-400) Neutrophils (%) (Auto) 72 % (31-73) 69 % (31-73) Lymphocytes (%) (Auto) 13 % (24-48) 14 % (24-48) Monocytes (%) (Auto) 12 % (0-9) 14 % (0-9) Eosinophils (%) (Auto) 3 % (0-3) 3 % (0-3) Basophils (%) (Auto) 1 % (0-3) 1 % (0-3) Neutrophils # (Auto) 7.1 x10^3uL (1.8-7.7) 5.7 x10^3uL (1.8-7.7) Lymphocytes # (Auto) 1.3 x10^3/uL (1.0-4.8) 1.2 x10^3/uL (1.0-4.8) Monocytes # (Auto) 1.2 x10^3/uL (0.0-1.1) 1.1 x10^3/uL (0.0-1.1) Eosinophils # (Auto) 0.3 x10^3/uL (0.0-0.7) 0.2 x10^3/uL (0.0-0.7) Basophils # (Auto) 0.1 x10^3/uL (0.0-0.2) 0.0 x10^3/uL (0.0-0.2) Sodium Level 143 mmol/L (136-145) 145 mmol/L (136-145) Potassium Level 3.8 mmol/L (3.5-5.1) 3.5 mmol/L (3.5-5.1) Chloride Level 107 mmol/L (98-107) 107 mmol/L (98-107) Carbon Dioxide Level 25 mmol/L (21-32) 29 mmol/L (21-32) Anion Gap 11 (6-14) 9 (6-14) Blood Urea Nitrogen 39 mg/dL (8-26) 25 mg/dL (8-26) Creatinine 3.9 mg/dL (0.7-1.3) 3.0 mg/dL (0.7-1.3) Estimated GFR (Cockcroft-Gault) 15.4 20.8 BUN/Creatinine Ratio 10 (6-20) Glucose Level 105 mg/dL (70-99) 88 mg/dL (70-99) Calcium Level 9.1 mg/dL (8.5-10.1) 8.4 mg/dL (8.5-10.1) Magnesium Level 2.1 mg/dL (1.8-2.4) Total Bilirubin 1.3 mg/dL (0.2-1.0) Aspartate Amino Transf (AST/SGOT) 16 U/L (15-37) Alanine Aminotransferase (ALT/SGPT) 16 U/L (16-63) Alkaline Phosphatase 42 U/L (46-116) EH-Pvn-X-Type Natriuretic Peptide 84399 pg/mL (0-124) Total Protein 7.2 g/dL (6.4-8.2) Albumin 3.0 g/dL (3.4-5.0) Albumin/Globulin Ratio 0.7 (1.0-1.7) Thyroid Stimulating Hormone (TSH) 0.946 uIU/mL (0.358-3.74) Hepatitis B Surface Antigen Negative (Negative) Hepatitis B Surface Antibody Non reactive (.) Test 09/05/17 03:50 09/05/17 05:30 Sodium Level 142 mmol/L (136-145) Potassium Level 3.8 mmol/L (3.5-5.1) Chloride Level 106 mmol/L (98-107) Carbon Dioxide Level 28 mmol/L (21-32) Anion Gap 8 (6-14) Blood Urea Nitrogen 32 mg/dL (8-26) Creatinine 3.4 mg/dL (0.7-1.3) Estimated GFR (Cockcroft-Gault) 18.0 Glucose Level 88 mg/dL (70-99) Calcium Level 8.4 mg/dL (8.5-10.1) White Blood Count 8.9 x10^3/uL (4.0-11.0) Red Blood Count 2.81 x10^6/uL (4.30-5.70) Hemoglobin 8.7 g/dL (13.0-17.5) Hematocrit 26.8 % (39.0-53.0) Mean Corpuscular Volume 95 fL (79-100) Mean Corpuscular Hemoglobin 31 pg (25-35) Mean Corpuscular Hemoglobin Concent 33 g/dL (31-37) Red Cell Distribution Width 15.3 % (11.5-14.5) Platelet Count 227 x10^3/uL (140-400) Neutrophils (%) (Auto) 66 % (31-73) Lymphocytes (%) (Auto) 16 % (24-48) Monocytes (%) (Auto) 15 % (0-9) Eosinophils (%) (Auto) 3 % (0-3) Basophils (%) (Auto) 1 % (0-3) Neutrophils # (Auto) 5.8 x10^3uL (1.8-7.7) Lymphocytes # (Auto) 1.4 x10^3/uL (1.0-4.8) Monocytes # (Auto) 1.3 x10^3/uL (0.0-1.1) Eosinophils # (Auto) 0.3 x10^3/uL (0.0-0.7) Basophils # (Auto) 0.1 x10^3/uL (0.0-0.2) 25-Hydroxy Vitamin D Total 13.7 ng/mL (30-100) Laboratory Tests Test 09/05/17 03:50 09/05/17 05:30 Sodium Level 142 mmol/L (136-145) Potassium Level 3.8 mmol/L (3.5-5.1) Chloride Level 106 mmol/L (98-107) Carbon Dioxide Level 28 mmol/L (21-32) Anion Gap 8 (6-14) Blood Urea Nitrogen 32 mg/dL (8-26) Creatinine 3.4 mg/dL (0.7-1.3) Estimated GFR (Cockcroft-Gault) 18.0 Glucose Level 88 mg/dL (70-99) Calcium Level 8.4 mg/dL (8.5-10.1) White Blood Count 8.9 x10^3/uL (4.0-11.0) Red Blood Count 2.81 x10^6/uL (4.30-5.70) Hemoglobin 8.7 g/dL (13.0-17.5) Hematocrit 26.8 % (39.0-53.0) Mean Corpuscular Volume 95 fL (79-100) Mean Corpuscular Hemoglobin 31 pg (25-35) Mean Corpuscular Hemoglobin Concent 33 g/dL (31-37) Red Cell Distribution Width 15.3 % (11.5-14.5) Platelet Count 227 x10^3/uL (140-400) Neutrophils (%) (Auto) 66 % (31-73) Lymphocytes (%) (Auto) 16 % (24-48) Monocytes (%) (Auto) 15 % (0-9) Eosinophils (%) (Auto) 3 % (0-3) Basophils (%) (Auto) 1 % (0-3) Neutrophils # (Auto) 5.8 x10^3uL (1.8-7.7) Lymphocytes # (Auto) 1.4 x10^3/uL (1.0-4.8) Monocytes # (Auto) 1.3 x10^3/uL (0.0-1.1) Eosinophils # (Auto) 0.3 x10^3/uL (0.0-0.7) Basophils # (Auto) 0.1 x10^3/uL (0.0-0.2) 25-Hydroxy Vitamin D Total 13.7 ng/mL (30-100) Brief Hospital Course Mr. Rodriguez is a 71 old male who is a relatively new HD, was supposed to have his first HD as OP but some mix up with schedule and so he missed it and so got fluid overloaded and so admitted for that with stat HD done on the night of admit and felt better after, he is getting another hD now, we are dsicahrging today IF SW is sure that HD op has been set up PROPERLY, NO new meds,. Orion Greenwood Seen and examined Discharge Information Condition at Discharge: Improved, Stable Disposition/Orders: D/C to Home Scheduled Amlodipine Besylate (Amlodipine Besylate), 10 MG PO DAILY, (Reported) Atorvastatin Calcium (Atorvastatin Calcium), 1 TAB PO DAILY, (Reported) Betaxolol Hcl (Betaxolol Hcl), 20 MG PO DAILY, (Reported) Clonazepam (Klonopin), 1 TAB PO BID, (Reported) Fenofibrate,Micronized (Fenofibrate), 1 CAP PO DAILY, (Reported) Lisinopril/Hydrochlorothiazide (Lisinopril-Hctz 20-12.5 Mg Tab), 1 TAB PO DAILY, (Reported) Tamsulosin Hcl (Tamsulosin Hcl), 1 CAP PO DAILY, (Reported) CARMEN WELCH MD Sep 05, 2017 09:59
--- NOTE | 2017-09-05 14:48 | PDOC ---
PROGRESS NOTES Subjective Subjective SEEN IN FOLLOW UP OF ESRD Objective Objective Vital Signs Date Time Temp Pulse Resp B/P (MAP) Pulse Ox O2 Delivery O2 Flow Rate FiO2 09/05/17 08:00 Nasal Cannula 3.0 09/05/17 07:00 97.6 67 18 152/70 (97) 93 97.6 Intake and Output 09/05/17 07:00 Intake Total 550 ml Balance 550 ml Intake Oral 550 ml # Voids 2 Physical Exam Abdomen: Normal bowel sounds, Soft, No tenderness, No hepatosplenomegaly, No masses Heart: Regular rate, Normal S1, Normal S2, No murmurs, Gallops Extremities: No clubbing, No cyanosis, No edema, Normal pulses, No tenderness/ swelling General: Alert, Oriented X3, Cooperative, No acute distress Lungs: Clear to auscultation, Normal air movement Psych/Mental Status: Mental status NL, Mood NL Diagnosis RENAL FAILURE: ESRD Assessment Assessment Problems Medical Problems: (1) Elevated brain natriuretic peptide (BNP) level Status: Acute (2) Lower extremity edema Status: Acute (3) Pulmonary edema Status: Acute (4) Renal failure Status: Acute Plan Plan of Care FOR DIALYSIS TODAY FOR SOLUTE CLEARANCE AND FLUID BALANCE. HAVE COORDINATED HIS OUTPATIENT DIALYSIS AND HE IS OK FOR D/C. EPOGEN FOR ANEMIA Comment Review of Relevant I have reviewed the following items albertina (where applicable) has been applied. Labs Laboratory Tests Test 09/03/17 17:50 09/03/17 17:55 09/03/17 21:50 09/04/17 03:33 25-Hydroxy Vitamin D Total 17.4 ng/mL (30-100) White Blood Count 9.9 x10^3/uL (4.0-11.0) 8.3 x10^3/uL (4.0-11.0) Red Blood Count 3.15 x10^6/uL (4.30-5.70) 2.91 x10^6/uL (4.30-5.70) Hemoglobin 9.9 g/dL (13.0-17.5) 8.9 g/dL (13.0-17.5) Hematocrit 30.1 % (39.0-53.0) 27.5 % (39.0-53.0) Mean Corpuscular Volume 96 fL (79-100) 95 fL (79-100) Mean Corpuscular Hemoglobin 32 pg (25-35) 31 pg (25-35) Mean Corpuscular Hemoglobin Concent 33 g/dL (31-37) 33 g/dL (31-37) Red Cell Distribution Width 15.8 % (11.5-14.5) 15.7 % (11.5-14.5) Platelet Count 270 x10^3/uL (140-400) 228 x10^3/uL (140-400) Neutrophils (%) (Auto) 72 % (31-73) 69 % (31-73) Lymphocytes (%) (Auto) 13 % (24-48) 14 % (24-48) Monocytes (%) (Auto) 12 % (0-9) 14 % (0-9) Eosinophils (%) (Auto) 3 % (0-3) 3 % (0-3) Basophils (%) (Auto) 1 % (0-3) 1 % (0-3) Neutrophils # (Auto) 7.1 x10^3uL (1.8-7.7) 5.7 x10^3uL (1.8-7.7) Lymphocytes # (Auto) 1.3 x10^3/uL (1.0-4.8) 1.2 x10^3/uL (1.0-4.8) Monocytes # (Auto) 1.2 x10^3/uL (0.0-1.1) 1.1 x10^3/uL (0.0-1.1) Eosinophils # (Auto) 0.3 x10^3/uL (0.0-0.7) 0.2 x10^3/uL (0.0-0.7) Basophils # (Auto) 0.1 x10^3/uL (0.0-0.2) 0.0 x10^3/uL (0.0-0.2) Sodium Level 143 mmol/L (136-145) 145 mmol/L (136-145) Potassium Level 3.8 mmol/L (3.5-5.1) 3.5 mmol/L (3.5-5.1) Chloride Level 107 mmol/L (98-107) 107 mmol/L (98-107) Carbon Dioxide Level 25 mmol/L (21-32) 29 mmol/L (21-32) Anion Gap 11 (6-14) 9 (6-14) Blood Urea Nitrogen 39 mg/dL (8-26) 25 mg/dL (8-26) Creatinine 3.9 mg/dL (0.7-1.3) 3.0 mg/dL (0.7-1.3) Estimated GFR (Cockcroft-Gault) 15.4 20.8 BUN/Creatinine Ratio 10 (6-20) Glucose Level 105 mg/dL (70-99) 88 mg/dL (70-99) Calcium Level 9.1 mg/dL (8.5-10.1) 8.4 mg/dL (8.5-10.1) Magnesium Level 2.1 mg/dL (1.8-2.4) Total Bilirubin 1.3 mg/dL (0.2-1.0) Aspartate Amino Transf (AST/SGOT) 16 U/L (15-37) Alanine Aminotransferase (ALT/SGPT) 16 U/L (16-63) Alkaline Phosphatase 42 U/L (46-116) UY-[id number]-Type Natriuretic Peptide 31209 pg/mL (0-124) Total Protein 7.2 g/dL (6.4-8.2) Albumin 3.0 g/dL (3.4-5.0) Albumin/Globulin Ratio 0.7 (1.0-1.7) Thyroid Stimulating Hormone (TSH) 0.946 uIU/mL (0.358-3.74) Hepatitis B Surface Antigen Negative (Negative) Hepatitis B Surface Antibody Non reactive (.) Test 09/05/17 03:50 09/05/17 05:30 Sodium Level 142 mmol/L (136-145) Potassium Level 3.8 mmol/L (3.5-5.1) Chloride Level 106 mmol/L (98-107) Carbon Dioxide Level 28 mmol/L (21-32) Anion Gap 8 (6-14) Blood Urea Nitrogen 32 mg/dL (8-26) Creatinine 3.4 mg/dL (0.7-1.3) Estimated GFR (Cockcroft-Gault) 18.0 Glucose Level 88 mg/dL (70-99) Calcium Level 8.4 mg/dL (8.5-10.1) White Blood Count 8.9 x10^3/uL (4.0-11.0) Red Blood Count 2.81 x10^6/uL (4.30-5.70) Hemoglobin 8.7 g/dL (13.0-17.5) Hematocrit 26.8 % (39.0-53.0) Mean Corpuscular Volume 95 fL (79-100) Mean Corpuscular Hemoglobin 31 pg (25-35) Mean Corpuscular Hemoglobin Concent 33 g/dL (31-37) Red Cell Distribution Width 15.3 % (11.5-14.5) Platelet Count 227 x10^3/uL (140-400) Neutrophils (%) (Auto) 66 % (31-73) Lymphocytes (%) (Auto) 16 % (24-48) Monocytes (%) (Auto) 15 % (0-9) Eosinophils (%) (Auto) 3 % (0-3) Basophils (%) (Auto) 1 % (0-3) Neutrophils # (Auto) 5.8 x10^3uL (1.8-7.7) Lymphocytes # (Auto) 1.4 x10^3/uL (1.0-4.8) Monocytes # (Auto) 1.3 x10^3/uL (0.0-1.1) Eosinophils # (Auto) 0.3 x10^3/uL (0.0-0.7) Basophils # (Auto) 0.1 x10^3/uL (0.0-0.2) 25-Hydroxy Vitamin D Total 13.7 ng/mL (30-100) Laboratory Tests Test 09/05/17 03:50 09/05/17 05:30 Sodium Level 142 mmol/L (136-145) Potassium Level 3.8 mmol/L (3.5-5.1) Chloride Level 106 mmol/L (98-107) Carbon Dioxide Level 28 mmol/L (21-32) Anion Gap 8 (6-14) Blood Urea Nitrogen 32 mg/dL (8-26) Creatinine 3.4 mg/dL (0.7-1.3) Estimated GFR (Cockcroft-Gault) 18.0 Glucose Level 88 mg/dL (70-99) Calcium Level 8.4 mg/dL (8.5-10.1) White Blood Count 8.9 x10^3/uL (4.0-11.0) Red Blood Count 2.81 x10^6/uL (4.30-5.70) Hemoglobin 8.7 g/dL (13.0-17.5) Hematocrit 26.8 % (39.0-53.0) Mean Corpuscular Volume 95 fL (79-100) Mean Corpuscular Hemoglobin 31 pg (25-35) Mean Corpuscular Hemoglobin Concent 33 g/dL (31-37) Red Cell Distribution Width 15.3 % (11.5-14.5) Platelet Count 227 x10^3/uL (140-400) Neutrophils (%) (Auto) 66 % (31-73) Lymphocytes (%) (Auto) 16 % (24-48) Monocytes (%) (Auto) 15 % (0-9) Eosinophils (%) (Auto) 3 % (0-3) Basophils (%) (Auto) 1 % (0-3) Neutrophils # (Auto) 5.8 x10^3uL (1.8-7.7) Lymphocytes # (Auto) 1.4 x10^3/uL (1.0-4.8) Monocytes # (Auto) 1.3 x10^3/uL (0.0-1.1) Eosinophils # (Auto) 0.3 x10^3/uL (0.0-0.7) Basophils # (Auto) 0.1 x10^3/uL (0.0-0.2) 25-Hydroxy Vitamin D Total 13.7 ng/mL (30-100) Medications Current Medications Albuterol/ Ipratropium (Duoneb) 3 ml 1X ONCE NEB Last administered on t 18:12; Start 09/03/17 at 18:00; Stop 09/03/17 at 18:01; Status DC Ondansetron HCl (Zofran) 4 mg PRN Q8HRS PRN IV NAUSEA/VOMITING; Start at 19:00; Stop 09/04/17 at 09:26; Status DC Info (PHARMACY MONITORING -- do not chart) 1 each PRN DAILY PRN MC SEE COMMENTS ; Start 09/03/17 at 21:45 Info (PHARMACY MONITORING -- do not chart) 1 each PRN DAILY PRN MC SEE COMMENTS ; Start 09/03/17 at 21:45; Status UNV Ondansetron HCl (Zofran) 4 mg PRN Q6HRS PRN IV NAUSEA/VOMITING; Start at 09:30 Acetaminophen (Tylenol) 500 mg PRN Q6HRS PRN PO MILD PAIN / TEMP; Start at 09:30 Amlodipine Besylate (Norvasc) 10 mg DAILY PO Last administered on 09/04/17 10 :18; Start 09/04/17 at 10:00 Atorvastatin Calcium (Lipitor) 10 mg QHS PO Last administered on 09/04/17 21: 48; Start 09/04/17 at 21:00 Clonazepam (KlonoPIN) 1 mg BID PO Last administered on 09/05/17 08:29; Start 09/04/17 at 10:00 Tamsulosin HCl (Flomax) 0.4 mg DAILY PO Last administered on 09/05/17 08:29; Start 09/04/17 at 10:00 Atenolol (Tenormin) 50 mg DAILY PO Last administered on 09/04/17 10:18; Start 09/04/17 at 10:00 Fenofibrate (Lofibra) 134 mg DAILY PO Last administered on 09/05/17 08:29; Start 09/04/17 at 10:00 Non-Formulary Medication 1 tab DAILY PO ; Start 09/05/17 at 09:00; Status UNV Clonidine HCl (Catapres) 0.1 mg PRN Q1HR PRN PO HYPERTENSION, SEE COMMENTS; Start 09/04/17 at 09:30 Lisinopril (Prinivil) 20 mg DAILY PO Last administered on 09/04/17 10:19; Start 09/04/17 at 10:00 Hydrochlorothiazide (Microzide) 12.5 mg DAILY PO Last administered on 10:13; Start 09/04/17 at 10:00 Info (PHARMACY MONITORING -- do not chart) 1 each PRN DAILY PRN MC SEE COMMENTS ; Start 09/05/17 at 08:30; Status UNV Info (PHARMACY MONITORING -- do not chart) 1 each PRN DAILY PRN MC SEE COMMENTS ; Start 09/05/17 at 08:30; Status UNV Active Scripts Active Reported Klonopin (Clonazepam) 1 Mg Tablet 1 Tab PO BID Lisinopril-Hctz 20-12.5 Mg Tab (Lisinopril/Hydrochlorothiazide) 1 Each Tablet 1 Tab PO DAILY Fenofibrate (Fenofibrate,Micronized) 200 Mg Capsule 1 Cap PO DAILY Tamsulosin Hcl 0.4 Mg Cap.er.24h 1 Cap PO DAILY Betaxolol Hcl 20 Mg Tablet 20 Mg PO DAILY Amlodipine Besylate 10 Mg Tablet 10 Mg PO DAILY Atorvastatin Calcium 10 Mg Tablet 1 Tab PO DAILY Vitals/I & O Vital Sign - Last 24 Hours 09/04/17 09/04/17 09/04/17 09/04/17 15:00 19:26 20:00 23:14 Temp 96.4 98.3 97.9 96.4 98.3 97.9 Pulse 63 66 64 Resp 19 16 18 B/P (MAP) 113/44 (67) 135/62 (86) 133/59 (83) Pulse Ox 93 94 92 O2 Delivery Nasal Cannula Nasal Cannula Nasal Cannula Nasal Cannula O2 Flow Rate 2.0 2.0 2.0 09/05/17 09/05/17 09/05/17 09/05/17 03:09 03:09 07:00 08:00 Temp 98.0 97.6 98.0 97.6 Pulse 67 67 Resp 18 B/P (MAP) 136/63 (87) 152/70 (97) Pulse Ox 79 91 93 O2 Delivery Room Air Nasal Cannula Nasal Cannula Nasal Cannula O2 Flow Rate 3.0 2.0 3.0 Intake and Output 09/04/17 09/04/17 09/05/17 15:00 23:00 07:00 Intake Total 350 ml 200 ml Balance 350 ml 200 ml CHRIS BRUNO MD Sep 05, 2017 14:48
[2017-09-05 15:09] VITALS: BP 145/55
== END 2017-09-05 16:00 | disposition home or self-care (01) | DRG 640 ==
LOC: ER 17:35 → 5 NORTH 18:43
PROVIDERS: ADMIT Internal Medicine; ATTEND Internal Medicine
PROC: 5A1D70Z Performance of Urinary Filtration, Intermittent, Less than 6 Hours Per Day (ICD-10-PCS; principal; 2017-09-04)
DX: E87.70 Fluid overload, unspecified (principal); N18.6 End stage renal disease; J81.1 Chronic pulmonary edema; I12.0 Hypertensive chronic kidney disease with stage 5 chronic kidney disease or end stage renal disease; D63.1 Anemia in chronic kidney disease; N25.81 Secondary hyperparathyroidism of renal origin; E78.5 Hyperlipidemia, unspecified; Z99.2 Dependence on renal dialysis
CPT/HCPCS: 36415; 71010; 80048; 80053; 82306; 83735; 83880; 84443; 85025; 86706; 87340; 87341; 93005; 94250; 94640; J7620; 97530; 99285-25

== ENCOUNTER → 2018-05-04 | Day surgery (SDC) | payer MEDICARE ==
[~2018-05-04] MED LIST changes: -AMLO10TA2 PO; -ATOR10TA60 PO; -CLON1TAB PO; -FENO200C PO; -LISI1TAB5 PO; +PROPOFOL 40 ML IV; -TAMS0.4C2 PO; -[UNRECOGNIZED DRUG - CODE] PO
[2018-05-04] MEDS: IV NORMAL SALINE 1000ML BAG 1,000 ML IV (10:44)
== END | disposition home or self-care (01) ==
LOC: ENDOS 09:53
DX: Z12.11 Encounter for screening for malignant neoplasm of colon (principal); D12.3 Benign neoplasm of transverse colon; K63.5 Polyp of colon; I12.0 Hypertensive chronic kidney disease with stage 5 chronic kidney disease or end stage renal disease; N18.6 End stage renal disease; Z99.2 Dependence on renal dialysis; E78.00 Pure hypercholesterolemia, unspecified; J43.9 Emphysema, unspecified; N40.0 Benign prostatic hyperplasia without lower urinary tract symptoms; Z86.010 Personal history of colon polyps; M19.90 Unspecified osteoarthritis, unspecified site; F17.200 Nicotine dependence, unspecified, uncomplicated; Z82.49 Family history of ischemic heart disease and other diseases of the circulatory system
CPT/HCPCS: 45380; 45385; 88305; J2704

== ENCOUNTER 2019-02-08 06:45 | Emergency (ER) | payer MEDICARE ==
[~2019-02-08] VITALS: Ht 172.7 cm; Wt 95.3 kg
[~2019-02-08 06:45] MED LIST changes: +AMLO10TA8 PO; +ATOR10TA60 PO; +CLON1TAB PO; +FENO200C PO; +LISI1TAB5 PO; -PROPOFOL 40 ML IV; +TAMS0.4C2 PO; +[UNRECOGNIZED DRUG - CODE] PO
[2019-02-08 08:17] LABS: BILIRUBIN,URINE NEGATIVE (NEG); CLARITY,URINE CLEAR; COLOR,URINE YELLOW; NITRITE,URINE NEGATIVE (NEG); PROTEIN,URINE 100 mg/dL (NEG-TRACE); UROBILINOGEN,URINE 0.2 mg/dL (0.2 mg/dL)
[2019-02-08 08:20] LABS: WBC,URINE OCC /HPF (0-4)
[2019-02-08 08:21] LABS: BACTERIA,URINE FEW /HPF (0-FEW); HYALINE CASTS, URINE OCCASIONAL /HPF
--- NOTE | 2019-02-08 08:23 | PHYS DOC ---
Past Medical History Past Medical History: Hypertension Past Surgical History: No Surgical History Additional Past Surgical Histo: FISTULA PLACEMENT Alcohol Use: None Drug Use: None Adult General Chief Complaint Chief Complaint: URINARY RETENTION HPI HPI Patient is a 73 year old [f__sex] who presents with [] Review of Systems Review of Systems Constitutional: Denies fever or chills [] Eyes: Denies change in visual acuity, redness, or eye pain [] HENT: Denies nasal congestion or sore throat [] Respiratory: Denies cough or shortness of breath [] Cardiovascular: No additional information not addressed in HPI [] GI: Denies abdominal pain, nausea, vomiting, bloody stools or diarrhea [] : Denies dysuria or hematuria [] Musculoskeletal: Denies back pain or joint pain [] Integument: Denies rash or skin lesions [] Neurologic: Denies headache, focal weakness or sensory changes [] Endocrine: Denies polyuria or polydipsia [] All other systems were reviewed and found to be within normal limits, except as documented in this note. Allergies Allergies Allergies Coded Allergies Type Severity Reaction Last Updated Verified No Known Drug Allergies 05/04/18 No Physical Exam Physical Exam Constitutional: Well developed, well nourished, no acute distress, non-toxic appearance. [] HENT: Normocephalic, atraumatic, bilateral external ears normal, oropharynx moist, no oral exudates, nose normal. [] Eyes: PERRLA, EOMI, conjunctiva normal, no discharge. [] Neck: Normal range of motion, no tenderness, supple, no stridor. [] Cardiovascular:Heart rate regular rhythm, no murmur [] Lungs & Thorax: Bilateral breath sounds clear to auscultation [] Abdomen: Bowel sounds normal, soft, no tenderness, no masses, no pulsatile masses. [] Skin: Warm, dry, no erythema, no rash. [] Back: No tenderness, no CVA tenderness. [] Extremities: No tenderness, no cyanosis, no clubbing, ROM intact, no edema. [] Neurologic: Alert and oriented X 3, normal motor function, normal sensory function, no focal deficits noted. [] Psychologic: Affect normal, judgement normal, mood normal. [] Current Patient Data Vital Signs Vital Signs Date Time Temp Pulse Resp B/P (MAP) Pulse Ox O2 Delivery O2 Flow Rate FiO2 02/08/19 07:20 97.7 72 16 190/97 (128) 98 97.7 Lab Values Laboratory Tests Test 02/08/19 07:59 Urine Collection Type Unknown Urine Color Yellow Urine Clarity Clear Urine pH 6.0 Urine Specific [place] 1.015 Urine Protein 100 mg/dL (NEG-TRACE) Urine Glucose (UA) Negative mg/dL (NEG) Urine Ketones (Stick) Negative mg/dL (NEG) Urine Blood Moderate (NEG) Urine Nitrite Negative (NEG) Urine Bilirubin Negative (NEG) Urine Urobilinogen Dipstick 0.2 mg/dL (0.2 mg/dL) Urine Leukocyte Esterase Negative (NEG) Urine RBC 3-5 /HPF (0-2) Urine WBC Occ /HPF (0-4) Urine Bacteria Few /HPF (0-FEW) Urine Hyaline Casts Occasional /HPF Urine Mucus Slight /LPF EKG EKG [] Radiology/Procedures Radiology/Procedures [] Course & Med Decision Making Course & Med Decision Making Pertinent Labs and Imaging studies reviewed. (See chart for details) [] Dragon Disclaimer Dragon Disclaimer This electronic medical record was generated, in whole or in part, using a voice recognition dictation system. Departure Departure Impression: Primary Impression: Urinary retention Disposition: 01 HOME, SELF-CARE Condition: STABLE Referrals: ADARSH MELARA (PCP) DARSHANA AQUINO MD Patient Instructions: Tate Catheter Care, Adult, Urinary Retention, Acute, Male, [id number] CHRIS CASSIDY DO Feb 08, 2019 08:23
[2019-02-08 08:30] VITALS: BP 169/74
== END 2019-02-08 09:13 | disposition home or self-care (01) ==
LOC: ER 06:45
DX: R33.9 Retention of urine, unspecified (principal); I10 Essential (primary) hypertension
CPT/HCPCS: 51702; 81001; 99284-25; 99285-25

== ENCOUNTER 2019-02-08 18:01 | Emergency (ER) | payer MEDICARE ==
[~2019-02-08] VITALS: Ht 172.7 cm; Wt 95.3 kg
[2019-02-08 19:15] VITALS: BP 146/76
--- NOTE | 2019-02-08 19:36 | PHYS DOC ---
Past Medical History Past Medical History: Hypertension (ROYAL CLEMENTS APRN) Past Surgical History: No Surgical History Additional Past Surgical Histo: FISTULA PLACEMENT (ROYAL CLEMENTS APRN) Alcohol Use: None Drug Use: None (ROYAL CLEMENTS APRN) Adult General Chief Complaint Chief Complaint: URINE CATHETER PROBLEM [facility] HPI Patient is a 73 year old male presents to the emergency room for placement of Tate catheter. Patient was seen in this emergency room earlier this morning for urinary retention, Tate catheter was placed and when he went to use the restroom this evening he noticed that the Tate was hanging off of his leg, no longer in the urethra. He denies any pain or blood from the urethral meatus. He would like to have the Tate catheter replaced. (ROYAL CLEMENTS APRN) Review of Systems Review of Systems Constitutional: Denies fever or chills [] Eyes: Denies change in visual acuity, redness, or eye pain [] HENT: Denies nasal congestion or sore throat [] Respiratory: Denies cough or shortness of breath [] Cardiovascular: No additional information not addressed in HPI [] GI: Denies abdominal pain, nausea, vomiting, bloody stools or diarrhea [] Musculoskeletal: Denies back pain or joint pain [] Integument: Denies rash or skin lesions [] Neurologic: Denies headache, focal weakness or sensory changes [] Endocrine: Denies polyuria or polydipsia [] All other systems were reviewed and found to be within normal limits, except as documented in this note. (ROYAL CLEMENTS APRN) Allergies Allergies Allergies Coded Allergies Type Severity Reaction Last Updated Verified No Known Drug Allergies 05/04/18 No (DRISS CESPEDES MD) Physical Exam Physical Exam Constitutional: Well developed, well nourished, no acute distress, non-toxic appearance. [] Abdomen: Bowel sounds normal, soft, no tenderness, no masses, no pulsatile masses. [] Skin: Warm, dry, no erythema, no rash. [] : Urethral meatus normal, no blood or discharge, no Tate in place Neurologic: Alert and oriented X 3, normal motor function, normal sensory function, no focal deficits noted. [] Psychologic: Affect normal, judgement normal, mood normal. [] (ROYAL CLEMENTS APRN) Current Patient Data Vital Signs Vital Signs Date Time Temp Pulse Resp B/P (MAP) Pulse Ox O2 Delivery O2 Flow Rate FiO2 02/08/19 19:15 98.4 77 16 146/76 (99) 98 Room Air 98.4 (DRISS CESPEDES MD) EKG EKG [] (ROYAL CLEMENTS APRN) Radiology/Procedures Radiology/Procedures [] (ROYAL CLEMENTS APRN) Course & Med Decision Making Course & Med Decision Making Pertinent Labs and Imaging studies reviewed. (See chart for details) [Urinary catheter was replaced, patient has follow-up information for urology from previous ER visit.] (ROYAL CLEMENTS APRN) Course & Med Decision Making Staff Physician Addendum: I was working in the ER during the course of this patient's visit. I was available for consultation as needed, but I was not directly involved in the care of this patient. (DRISS CESPEDES MD) Dragon Disclaimer Dragon Disclaimer This electronic medical record was generated, in whole or in part, using a voice recognition dictation system. (ROYAL CLEMENTS APRN) Departure Departure Impression: Primary Impression: Urinary catheter insertion/adjustment/removal Disposition: 01 HOME, SELF-CARE Condition: STABLE Referrals: ADARSH MELARA (PCP) Patient Instructions: Tate Catheter Care, Adult ROYAL CLEMENTS APRN Feb 08, 2019 19:36 DRISS CESPEDES MD February 10, 2019 00:11
== END 2019-02-08 19:52 | disposition home or self-care (01) ==
LOC: ER 18:01
DX: Z46.6 Encounter for fitting and adjustment of urinary device (principal); R33.9 Retention of urine, unspecified; I10 Essential (primary) hypertension
CPT/HCPCS: 51702; 99284-25

== ENCOUNTER → 2019-06-10 | Day surgery (SDC) | payer MEDICARE ==
[~2019-06-10] MED LIST changes: +ASPI-612 PO; +DARBEPOETIN ALFA IN POLYSORBAT SQ; +GABA600T7 PO; +IV NORMAL SALINE 1000ML BAG 1,000 ML IV ONE; +IV RINGERS,LACTATED 1000ML 1,000 ML IV ONE; +LISI1TAB19 PO; -LISI1TAB5 PO; +OXCA150T19 PO; +OXCA150T3 PO; +PROPOFOL 20 ML IV ONE
[2019-06-10 13:40] VITALS: BP 166/97
== END ==
LOC: ENDOS 10:46
PROVIDERS: ATTEND Internal Medicine Gastroenterology
DX: K29.60 Other gastritis without bleeding (principal); I12.0 Hypertensive chronic kidney disease with stage 5 chronic kidney disease or end stage renal disease; N18.6 End stage renal disease; F15.90 Other stimulant use, unspecified, uncomplicated; Z72.89 Other problems related to lifestyle
CPT/HCPCS: 43235; J2704

== ENCOUNTER → 2020-02-10 | Outpatient (CLI) | payer MEDICARE ==
[2019-12-11 09:13] VITALS: BP 126/54
[~2020-02-10] MED LIST changes: +GABA100C6 PO; -IV NORMAL SALINE 1000ML BAG 1,000 ML IV ONE; -IV RINGERS,LACTATED 1000ML 1,000 ML IV ONE; -PROPOFOL 20 ML IV ONE
--- NOTE | 2020-02-10 14:42 | RAD ---
CT CHEST WO CONTRAST Indication: Lung nodule Technique: Noncontrast CT imaging was performed of the chest, multiplanar reconstruction images submitted. One or more of the following individualized dose reduction techniques were utilized for this examination: 1. Automated exposure control 2. Adjustment of the mA and/or kV according to patient size 3. Use of iterative reconstruction technique. Comparison: 12/06/2019 Findings: There is some motion degradation. Previously seen nodular appearing infiltrates bilaterally have resolved. Heart is enlarged. There is no pneumothorax. There are trace bilateral pleural effusions left greater than right. There is coronary calcification. There is no pericardial effusion. Thoracic aortic caliber is within normal low dense, some scattered plaque present. There are again some mediastinal nodes. For example one of the largest superior right paratracheal nodes measures about 1.4 cm short axis dimension which is similar. Right precarinal node about 1.1 cm short axis dimension is similar. AP window node about 0.8 cm short axis dimension is slightly smaller as previously about 1 cm. Left inferior paratracheal nodes with the largest about 0.8 cm axis dimension are somewhat smaller. There is again evidence of diffuse idiopathic skeletal hyperostosis of thoracic spine. There are again multiple old left posterior rib fractures. IMPRESSION: 1. Previously seen nodular infiltrates bilaterally have resolved. 2. There is residual nonspecific mediastinal lymphadenopathy, overall stable to decreased. 3. There is coronary calcification. Heart is enlarged. There is trace pleural fluid bilaterally. Electronically signed by: Jd Burgess MD (02/10/2020 2:39 PM) [id number]
== END | disposition home or self-care (01) ==
LOC: CT 13:10
PROVIDERS: ATTEND Internal Medicine Critical Care Medicine
DX: I25.10 Atherosclerotic heart disease of native coronary artery without angina pectoris (principal); R91.1 Solitary pulmonary nodule; R59.0 Localized enlarged lymph nodes; I51.7 Cardiomegaly
CPT/HCPCS: 71250

== ENCOUNTER → 2020-05-17 | Outpatient (CLI) | payer MEDICARE ==
[2019-12-11 09:13] VITALS: BP 126/54
[~2020-05-17] MED LIST changes: -ASPI-612 PO; +ASPI-886 PO; -LISI1TAB19 PO; +LISI1TAB37 PO
--- NOTE | 2020-05-17 15:43 | KCIC ---
Right lower extremity ultrasound without comparison for cellulitis. FINDINGS: Real-time grayscale and color Doppler evaluation of the area of interest the right lower extremity is performed. There is a large amount of subcutaneous edema identified. No encapsulated or loculated fluid collection is identified. No fluid deep to the superficial fascia is evident. IMPRESSION: 1. Large amount subcutaneous edema with no focal abscess or loculated fluid collection. Electronically signed by: Rodolfo Gonzales MD (05/17/2020 3:40 PM) [id number]
== END | disposition home or self-care (01) ==
LOC: KCIC US 14:43
PROVIDERS: ATTEND Family Medicine
DX: L03.115 Cellulitis of right lower limb (principal); R22.41 Localized swelling, mass and lump, right lower limb
CPT/HCPCS: 76881

== ENCOUNTER → 2020-06-01 | Outpatient (CLI) | payer MEDICARE ==
[2019-12-11 09:13] VITALS: BP 126/54
[~2020-06-01] MED LIST changes: +REGADENOSON 0.4 MG/5 ML DISP.SYRIN. IV ONE
--- NOTE | 2020-06-01 16:38 | RAD ---
MR#: [id number] Date of Study: 06/01/2020 Ordering Physician: MICHAEL VERDIN, Referring Physician: TYRELL GARCÍA Tech: CYRIL Sterling, ARRT (R) (N) APPROVED REPORT Test Type: Pharmacological Stress Nurse/Tech: Madelaine Ward R.N. Test Indications: a fib Cardiac History: Hypertension Medications: See Electronic Medical Record Medical History: See Electronic Medical Record Resting ECG: NSR with Trigeminy Resting Heart Rate: 81 bpm Resting Blood Pressure: 176/68mmHg Pretest Chest Pain: No chest pain Nurse/Tech Notes S1S2, lungs sound clear Consent: The procedure was explained to the patient in lay terms. Informed consent was witnessed. Thony eout was entered into [employer]. History and Stress Test performed by Madelaine Ward R.N. Pharm. Details Pharmacologic stress testing was performed using 0.4mg per 5ml of regadenoson given intravenously ove r 7-10 seconds. POST EXERCISE Reason for Termination: Infusion complete Target HR: 124 Max HR: 92 bpm Max Blood Pressure: 181/74mmHg Blood Pressure response to exercise: Normal blood pressure response during stress. Chest Pain: No. Arrhythmia: No. cont. to have some trigeminy ST Change: No. INTERPRETATION Stress EKG Conclusion: The resting EKG shows a sinus rhythm with nonspecific ST-T wave changes and PA Cs. The stress EKG shows no significant changes from baseline. No EKG evidence of stress-induced ischemia. Imaging Protocol IMAGE PROTOCOL: Rest Tc-99m/stress Tc-99m 1 day Rest: Stress: Viability: Radiopharm.Tc99m [id number] Sestamibi Zuha10sXg 33mCi Img Date 06/01/2020 06/01/2020 Inj-Img Seyl33wzm. 60min. Rest Admin Site:IV - Left AntecubitalAdministrator:RT Claudia (R)(N) Stress Admin Site: IV - Left AntecubitalAdministrator: RT Claudia (R)(N) STRESS DATA End Diast. Vol.131.0mlLVEDV index BSA65.0ml End Syst. Vol.32.0mlLVESV index BSA16.0ml Myocardial Ohtn670.0gEject. Kaoegfth83.0% Stress Scores Regional WT0.00Summed WT6.00 Regional WM0.00Summed WM0.00 LV Perfusion The stress scans showed no significant defects. The rest scans showed no significant defects. Nuclear imaging shows no reversible ischemia or infarct. Wall Motion Left ventricular systolic function is normal with no regional wall motion abnormalities and an ejecti on fraction of greater than 70%. LV Perf. Quant 17 Seg. SSS1.00 17 Seg. SRS1.00 17 Seg. SDS0.00 Stress Defect Extent (% LAD)0.00Rest Defect Extent (% LAD)0.00Rev. Defect Extent (% LAD)0.00 Stress Defect Extent (% LCX) 0.00Rest Defect Extent (% LCX)0.00Rev. Defect Extent (% LCX)0.00 Stress Defect Extent (% RCA)1.10Rest Defect Extent (% RCA)1.10Rev. Defect Extent (% RCA)0.00 Stress Defect Extent (% JACKIE)2.40Rest Defect Extent (% JACKIE)2.40Rev. Defect Extent (% JACKIE)0.00 Conclusion 1. No EKG evidence of stress-induced ischemia. 2. Nuclear imaging shows no reversible ischemia or infarct. 3. Normal left ventricular systolic function with an ejection fraction of greater than 70%. 4. Low risk Lexiscan nuclear stress test. Signed by : Mauro Do MD Electronically Approved : 06/01/2020 16:38:01
== END | disposition home or self-care (01) ==
LOC: NM 08:07
PROVIDERS: ATTEND Internal Medicine Cardiovascular Disease
DX: I48.91 Unspecified atrial fibrillation (principal); I12.0 Hypertensive chronic kidney disease with stage 5 chronic kidney disease or end stage renal disease
CPT/HCPCS: 78452; 93017; A9500; J2785

== ENCOUNTER 2020-07-03 09:55 | Emergency (ER) | payer MEDICARE ==
[~2020-07-03] VITALS: Ht 170.2 cm; Wt 94.0 kg
[~2020-07-03 09:55] MED LIST changes: -REGADENOSON 0.4 MG/5 ML DISP.SYRIN. IV ONE
[2020-07-03 10:27] LABS: BASO % 0 % (0-3); EOS # 0.1 x10^3/uL (0.0-0.7); EOS % 2 % (0-3); HEMATOCRIT 22.5 % (39.0-53.0); HEMOGLOBIN 7.5 g/dL (13.0-17.5); LYMPH # 1.6 x10^3/uL (1.0-4.8); LYMPH % 35 % (24-48); MEAN CORPUSCULAR HEMOGLOBIN 32 pg (25-35); MEAN CORPUSCULAR HGB CONC 34 g/dL (31-37); MEAN CORPUSCULAR VOLUME 94 fL (79-100); MONO # 0.7 x10^3/uL (0.0-1.1); MONO % 15 % (0-9); NEUT # 2.2 x10^3/uL (1.8-7.7); NEUT % 48 % (31-73); PLATELET COUNT 143 x10^3/uL (140-400); RED BLOOD COUNT 2.38 x10^6/uL (4.30-5.70); RED CELL DISTRIBUTION WIDTH 17.7 % (11.5-14.5); WHITE BLOOD COUNT 4.6 x10^3/uL (4.0-11.0)
[2020-07-03 10:34] LABS: CALCIUM 8.4 mg/dL (8.5-10.1); CREATININE 2.9 mg/dL (0.7-1.3); GFR 21.4; POTASSIUM 3.2 mmol/L (3.5-5.1)
[2020-07-03 10:49] LABS: ALBUMIN/GLOBULIN RATIO 0.8 (1.0-1.7); TOTAL BILIRUBIN 0.8 mg/dL (0.2-1.0)
[2020-07-03 11:55] LABS: % BANDS 6 % (0-9); % EOS 1 % (0-5); % LYMPHS 24 % (24-48); % MONOS 5 % (0-10); % MYELOS 1 % (0-0); % SEGS 63 % (35-66); PLT ESTIMATE ADEQUATE (ADEQUATE)
[2020-07-03 13:00] VITALS: BP 189/84
--- NOTE | 2020-07-03 13:01 | PHYS DOC ---
Past Medical History Past Medical History: Hypertension, Renal Failure Past Surgical History: Other Additional Past Surgical Histo: FISTULA PLACEMENT RIGHT ARM Smoking Status: Former Smoker Alcohol Use: None Drug Use: None General Adult EDM: Chief Complaint: ABNORMAL LABS HPI: HPI: Patient is a 74 year old male was sent here from his dialysis center due to low hemoglobin level. Patient did finish his dialysis today. He was sent here because his hemoglobin was 6.5. He recently had dental extraction and bleeding for several days. No longer bleeding. NO dark stool.. no weakness or chest pain. NO cough, no fever, not on any blood thinner. Review of Systems: Review of Systems: Constitutional: Denies fever or chills. [] Eyes: Denies change in visual acuity. [] HENT: Denies nasal congestion or sore throat. [] Respiratory: Denies cough or shortness of breath. [] Cardiovascular: Denies chest pain or edema. [] GI: Denies abdominal pain, nausea, vomiting, bloody stools or diarrhea. [] : Denies dysuria. [] Musculoskeletal: Denies back pain or joint pain. [] Integument: Denies rash. [] Neurologic: Denies headache, focal weakness or sensory changes. [] Endocrine: Denies polyuria or polydipsia. [] Lymphatic: Denies swollen glands. [] Psychiatric: Denies depression or anxiety. [] Heart Score: Risk Factors: Risk Factors: DM, Current or recent (<one month) smoker, HTN, HLP, family history of CAD, obesity. Risk Scores: Score 0 - 3: 2.5% MACE over next 6 weeks - Discharge Home Score 4 - 6: 20.3% MACE over next 6 weeks - Admit for Clinical Observation Score 7 - 10: 72.7% MACE over next 6 weeks - Early Invasive Strategies Allergies: Allergies: Allergies Coded Allergies Type Severity Reaction Last Updated Verified No Known Drug Allergies 06/10/19 No Physical Exam: PE: Constitutional: Well developed, well nourished, no acute distress, non-toxic a ppearance. [] HENT: Normocephalic, atraumatic, bilateral external ears normal, oropharynx moist, no oral exudates, nose normal. [] Eyes: PERRLA, EOMI, conjunctiva normal, no discharge. [] Neck: Normal range of motion, no tenderness, supple, no stridor. [] Cardiovascular:Heart rate regular rhythm, no murmur [] Lungs & Thorax: Bilateral breath sounds clear to auscultation [] Abdomen: Bowel sounds normal, soft, no tenderness, no masses, no pulsatile masses. [] Skin: Warm, dry, no erythema, no rash. [] Back: No tenderness, no CVA tenderness. [] Extremities: No tenderness, no cyanosis, no clubbing, ROM intact, no edema. [] Neurologic: Alert and oriented X 3, normal motor function, normal sensory function, no focal deficits noted. [] Psychologic: Affect normal, judgement normal, mood normal. [] Current Patient Data: Labs: Laboratory Tests Test 07/03/20 10:16 White Blood Count 4.6 x10^3/uL (4.0-11.0) Red Blood Count 2.38 x10^6/uL (4.30-5.70) L Hemoglobin 7.5 g/dL (13.0-17.5) L Hematocrit 22.5 % (39.0-53.0) L Mean Corpuscular Volume 94 fL (79-100) Mean Corpuscular Hemoglobin 32 pg (25-35) Mean Corpuscular Hemoglobin Concent 34 g/dL (31-37) Red Cell Distribution Width 17.7 % (11.5-14.5) H Platelet Count 143 x10^3/uL (140-400) Neutrophils (%) (Auto) 48 % (31-73) Lymphocytes (%) (Auto) 35 % (24-48) Monocytes (%) (Auto) 15 % (0-9) H Eosinophils (%) (Auto) 2 % (0-3) Basophils (%) (Auto) 0 % (0-3) Neutrophils # (Auto) 2.2 x10^3/uL (1.8-7.7) Lymphocytes # (Auto) 1.6 x10^3/uL (1.0-4.8) Monocytes # (Auto) 0.7 x10^3/uL (0.0-1.1) Eosinophils # (Auto) 0.1 x10^3/uL (0.0-0.7) Basophils # (Auto) 0.0 x10^3/uL (0.0-0.2) Segmented Neutrophils % 63 % (35-66) Band Neutrophils % 6 % (0-9) Lymphocytes % 24 % (24-48) Monocytes % 5 % (0-10) Eosinophils % 1 % (0-5) Myelocytes % 1 % (0-0) H Platelet Estimate Adequate (ADEQUATE) Sodium Level 138 mmol/L (136-145) Potassium Level 3.2 mmol/L (3.5-5.1) L Chloride Level 99 mmol/L (98-107) Carbon Dioxide Level 29 mmol/L (21-32) Anion Gap 10 (6-14) Blood Urea Nitrogen 10 mg/dL (8-26) Creatinine 2.9 mg/dL (0.7-1.3) H Estimated GFR (Cockcroft-Gault) 21.4 BUN/Creatinine Ratio 3 (6-20) L Glucose Level 94 mg/dL (70-99) Calcium Level 8.4 mg/dL (8.5-10.1) L Total Bilirubin 0.8 mg/dL (0.2-1.0) Aspartate Amino Transferase (AST) 27 U/L (15-37) Alanine Aminotransferase (ALT) 21 U/L (16-63) Alkaline Phosphatase 57 U/L (46-116) Total Protein 7.0 g/dL (6.4-8.2) Albumin 3.0 g/dL (3.4-5.0) L Albumin/Globulin Ratio 0.8 (1.0-1.7) L Laboratory Tests 07/03/20 10:16 Laboratory Tests 07/03/20 10:16 Vital Signs: Vital Signs Date Time Temp Pulse Resp B/P (MAP) Pulse Ox O2 Delivery O2 Flow Rate FiO2 07/03/20 10:02 98.7 77 18 189/79 (115) 97 Room Air 98.7 EKG: EKG: [] Radiology/Procedures: Radiology/Procedures: [] Course & Med Decision Making: Course & Med Decision Making Pertinent Labs and Imaging studies reviewed. (See chart for details) Patient's anemia is due to chronic disease and recent bleeding from dental extraction. No need for transfusion at this time, will see his doctor in two days for rechecked. Marvin Disclaimer: Marvin Disclaimer: This electronic medical record was generated, in whole or in part, using a voice recognition dictation system. Departure Departure Impression: Primary Impression: Anemia of chronic disease Disposition: HOME, SELF-CARE Condition: STABLE Referrals: LIZZY LIGHT MD (PCP) PLEASE FOLLOW UP WITH YOUR DOCTOR IN 2 DAYS FOR REEVALUATION. Patient Instructions: Anemia, FAQs Additional Instructions: Thank you for visiting our Emergency Department. We appreciate you trusting us with your care. If any additional problems come up don't hesitate to return to visit us. Please follow up with your primary care provider so they can plan additional care if needed and know about the problem that you had. If symptoms worsen come back to the Emergency Department. Any concerning symptoms that start such as chest pain, shortness of air, weakness or numbness on one side of the body, running high fevers or any other concerning symptoms return to the ER. Justicifation of Admission Dx: Justifications for Admission: Justification of Admission Dx: N/A AMBIKA DOHERTY DO Jul 03, 2020 13:01
== END 2020-07-03 13:23 | disposition home or self-care (01) ==
LOC: ER 09:55
DX: I12.9 Hypertensive chronic kidney disease with stage 1 through stage 4 chronic kidney disease, or unspecified chronic kidney disease (principal); N18.9 Chronic kidney disease, unspecified; D63.1 Anemia in chronic kidney disease; Z87.891 Personal history of nicotine dependence; Z99.2 Dependence on renal dialysis
CPT/HCPCS: 36415; 80053; 85007; 85025; 86850; 86900; 86901; 99285